=== PATIENT | female | born 1940 | race Caucasian/White ===

== ENCOUNTER 2017-06-08 22:41 | Inpatient (IN) | payer OTHER ==
[~2017-06-08] VITALS: Ht 152.4 cm; Wt 63.6 kg
--- NOTE | ~2017-06-08 | EKG ---
[address] [address] ELECTROCARDIOGRAM REPORT Name: BIPIN FRANCO Room #: 240-P ADM IN M.R.#: [id number] Admission: 06/09/17 Attend Phys: Bobby Alvarez MD Discharge: Date of : 38 Report #: [id number] THIS REPORT FOR: //name// [facility] ED Test Date: 2017-06-09 Test Time: 00:10:53 Pat Name: BIPIN FRANCO Department: Room: 240 P Gender: F Circus Laborer: EM : 1940 Requested By: Eusebio Gaming Order Number: [id number] MD: Ish Wells Measurements Intervals [place] Rate: 64 P: 64 WI: 172 QRS: 25 QRSD: 87 T: 99 QT: 468 QTc: 483 Interpretive Statements Sinus rhythm Probable left atrial enlargement LVH with secondary repolarization abnormality Compared to ECG 08/04/1997 13:16:00 Left ventricular hypertrophy now present Early repolarization now present Electronically Signed On 06-09-2017 9:57:56 BIKE DESIGNER by Ish Wells [email or web address] <ELECTRONICALLY SIGNED> By: Ish Wells MD 06/09/17 0957 0010 0010 Ish Wells MD /EPI
--- NOTE | ~2017-06-08 | HC ---
[facility] [place] [address] CONSULTATION Name: SALVADORBIPIN Quinn Room #: 240-P [facility] ..#: [id number] Admission: 06/09/17 Attend Phys: Bobby Alvarez MD Discharge: Date of : 39 Report #: [id number] THIS REPORT FOR: //name// CC: ORIANA physician/PCP ROB Alvarez REFERRAL PHYSICIAN: Bobby Alvarez MD REASON FOR REFERRAL: Acute respiratory failure. HISTORY OF PRESENT ILLNESS: The patient is a 77-year-old white female who was brought to the Emergency Room with acute mental status change. She has subsequently had a seizure following admission. The patient required intubation. A pulmonary consultation was requested. According to records, the patient was recently diagnosed with bladder cancer. She had a Port-A-Cath placed. She is to undergo chemotherapy. According to the family, the patient does have a history of seizure disorder. She was in her usual state of health until yesterday evening when she was feeling somewhat weak. She complained of dyspnea. Family noted abnormal generalized body movements. For that reason, she was brought to the Emergency Room. The patient was admitted for altered mental status. When she was hospitalized at the telemetry unit, she had seizure disorder. She was then transferred to the ICU. She again had another seizure disorder where she was found to be cyanotic and apneic. She was intubated. Currently, she is sedated. She is tolerating mechanical ventilation. PAST MEDICAL HISTORY: Notable for recent diagnosis of uterine cancer in 03/2017, status post chemotherapy, the patient was to receive chemotherapy; history of hypothyroidism; hypertension, history of depression and history of "blood clots" and is on Eliquis. PAST SURGICAL HISTORY: As mentioned above including a Port-A-Cath placement in the right subclavian vein. HOME MEDICATIONS: Bisoprolol, Synthroid, Eliquis, Zoloft, K-Dur and folic acid. FAMILY HISTORY: Unknown. SOCIAL HISTORY: She is a lifetime nonsmoker and does not drink alcohol. Records are incomplete. We are awaiting records from [facility]. REVIEW OF SYSTEMS: Deferred as the patient is intubated. [facility] [address] [place] [address] CONSULTATION Name: BIPIN FRANCO Room #: 240-P [facility]#: [id number] Admission: 06/09/17 Attend Phys: Bobby Alvarez MD Discharge: Date of : 39 Report #: [id number] PHYSICAL EXAMINATION: GENERAL: She is sedated, but arousable. VITAL SIGNS: Temperature is 97 degrees Fahrenheit, pulse is 66, respiratory rate is 17, blood pressure is 150/66 mmHg and saturation 100%. HEENT: Normocephalic and atraumatic. NECK: Supple without any lymphadenopathy or thyromegaly. CHEST: Breath sounds are clear without rales or wheezes. CARDIOVASCULAR: Normal S1 and S2. No murmurs or gallop. There is no JVD. There is no carotid bruit. Pulses are 2+/4+ bilaterally. ABDOMEN: Soft and nontender. No organomegaly or masses felt. GENITOURINARY: Deferred. RECTAL: Deferred. EXTREMITIES: There is no edema, cyanosis or clubbing. NEUROLOGIC: Deferred as the patient is sedated. LABORATORY DATA: CT of head was unremarkable. Atrophic and chronic small vessel ischemic changes are noted. EKG shows left ventricular hypertrophy, left atrial enlargement, otherwise no acute ischemic changes. Chest x-ray shows clear lung field, ET tube approximately 3 cm above the michelle. There is a Port-A-Cath placement along the right chest area. NG tube is in place. Sodium 140, potassium 3.0, chloride 103, CO2 25, BUN is 18 and creatinine is 1.2. Liver enzymes are grossly unremarkable. WBC 29,700, hemoglobin 9.6, platelets are normal, no evidence of bandemia. Albumin 2.6. Arterial blood gas revealed pH 7.26, pCO2 of 37, pO2 78 on room air. IMPRESSION: 1. Acute hypoxic respiratory failure in a 77-year-old white female due to apparent seizure disorder. 2. Seizure disorder. It is unclear if this is ____ patient. Neurology has been consulted. Initial CT head was grossly unremarkable. 3. Leukocytosis. No obvious evidence of infectious processes. Chest x-ray is clear. Blood culture has been obtained along with urine cultures. I do not suspect infectious source at this time. 4. Renal injury, presumed acute with a creatinine of 1.5. Again, we will need to review old records for confirmation. 5. Metabolic acidosis due to seizure disorder. There is partial respiratory compensation. 6. Recent uterine cancer, status post Port-A-Cath past placement to undergo chemotherapy soon. 7. Hypothyroidism. 8. Hypertension. 9. On anticoagulation. It is unclear whether she had veno thromboembolic disease. We will review medical records when available. RECOMMENDATION: We will continue mechanical ventilation for now. We will await [facility] [address] [facility] [place] [address] CONSULTATION Name: BIPIN FRANCO Room #: 240-P ADM IN Vivek.#: [id number] Admission: 06/09/17 Attend Phys: Bobby Alvarez MD Discharge: Date of : 39 Report #: [id number] neurologic evaluation. EEG is currently being performed. For now, I will recommend p.r.n. benzodiazepine along with anti-seizure medications per Neurology. Follow up cultures to rule out occult infectious processes. Follow electrolytes and acid base disorder closely. This should resolve with IV fluids. The patient was also recently given diuretics. Fluid status should also be followed closely along with electrolytes. DVT and GI prophylaxis will be addressed. As mentioned above, the patient is already on Eliquis. Thank you for this consultation. <ELECTRONICALLY SIGNED> By: Eusebio Gaming MD 06/10/17 1231 1034 0136 Eusebio Gaming MD /nt
--- NOTE | ~2017-06-08 | EKG ---
[address] [address] ELECTROCARDIOGRAM REPORT Name: SALVADORBIPIN H Room #: 240-P ADM IN M.R.#: [id number] Admission: 06/09/17 Attend Phys: Bobby Alvarez MD Discharge: Date of : 39 Report #: [id number] THIS REPORT FOR: //name// [facility] Test Date: 2017-06-09 Test Time: 07:40:22 Pat Name: BIPIN FRANCO Department: Room: 240 P Gender: F Medical Collector: MARLI : 1940 Requested By: Bobby Alvarez Order Number: [id number] MD: Ish Wells Measurements Intervals [place] Rate: 56 P: 65 IA: 159 QRS: 39 QRSD: 86 T: 78 QT: 561 QTc: 542 Interpretive Statements Sinus rhythm LVH with secondary repolarization abnormality Anterior infarct, old Electronically Signed On 06-09-2017 15:47:12 HOT BOX CHECKER by Ish Wells [email or web address] <ELECTRONICALLY SIGNED> By: Ish Wells MD 06/09/17 1547 0740 0740 MD YORDAN Calzada
--- NOTE | ~2017-06-08 | HC ---
[facility] [place] [address] CONSULTATION Name: SALVADORBIPIN H Room #: 444-P ADM IN M.R.#: [id number] Admission: 06/09/17 Attend Phys: Buck Mayer MD Discharge: Date of : 39 Report #: [id number] THIS REPORT FOR: //name// CC: Buck Mayer [facility] physician/PCP ROB ALVAREZ REASON FOR CONSULTATION: I was asked to evaluate concerning new onset of seizures in the setting of uterine cancer. HISTORY OF PRESENT ILLNESS: The patient is a 77-year-old diagnosed with uterine cancer status post hysterectomy in 03/2017. She is scheduled to start chemotherapy next week. She had a Port-A-Cath placed without complication. She had an incisional wound that has been slow to heal. Otherwise, has been doing reasonably well. On the date of admission, she was found by her having a seizure. Called 911 and she presented to the Emergency Room. She subsequently had another witnessed seizure and she was intubated, placed on mechanical ventilation. This was on 06/09/2017. She has subsequently been extubated. She has been alert and cooperative. During her evaluation, she was noted to have a white count of 20,000 and increased to 29,000. Her urinalysis was positive for wbc's and bacteria with Gram-negatives growing from the urine and negative blood cultures. 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 She has had a chest x-ray with basilar atelectasis post-extubation. She has had no cough or sputum production. No nausea, vomiting or diarrhea. Indwelling Gr catheter. IV was in place. The patient was amnestic to the events of her admission. ALLERGIES: ATORVASTATIN. MEDICATIONS: Prior to her admission, she was on Synthroid, Eliquis, bisoprolol, Zoloft, K-Dur and folic acid. PAST MEDICAL HISTORY: Hypertension, hypothyroidism, depression. Previously had renal stent, which has subsequently been removed. She had a hysterectomy. There is suggestion of a mural thrombus, but I have not seen the records from [facility]. FAMILY HISTORY: Noncontributory. SOCIAL HISTORY: Nonsmoker. No significant alcohol intake. Lives with her . REVIEW OF SYSTEMS: Noted above. PHYSICAL EXAMINATION: [facility] [address] [place] [address] CONSULTATION Name: BIPIN FRANCO Room #: [address] [place] [address] [place] .R.#: [id number] Admission: 06/09/17 Attend Phys: Buck Mayer MD Discharge: Date of : 39 Report #: [id number] VITAL SIGNS: Afebrile and hemodynamically stable. GENERAL: Alert and cooperative and pleasant, no acute distress. She was oriented. Had good recall of recent events. Speech was dysarthric, had difficulty pronouncing [place]. CRANIAL NERVES: Otherwise, intact. NECK: Supple. LUNGS: Few crackles in the bases bilaterally. HEART: Regular, without appreciable murmur, gallop or rub. ABDOMEN: Soft, nontender, no hepatosplenomegaly or mass. Midline abdominal incision had clean granulation tissue at the base. EXTREMITIES: Unremarkable. NEUROLOGIC: Nonfocal. 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 No evidence of hemorrhage or mass effect. There was some suggestion that there could be cerebral edema secondary to encephalitis cerebritis, but was difficult to exclude. Chest x-ray, basilar atelectasis. Sodium 133, potassium 3, bicarbonate 21, creatinine 1.1, AST 29, ALT 19, alkaline phosphatase 110. BNP initially was 23,000. Hemoglobin 8.2. Platelet count 372,000. White count initially 20,000, 29,000, now 16,000. Unremarkable differential. TSH 4.7. Urinalysis positive for wbc's, bacteria and urine culture showing gram-negative bacilli. Sputum has no growth. Blood cultures negative. IMPRESSION: A 77-year-old with uterine cancer, planning for chemotherapy in the near future. She has a new onset of seizures. She has history of possible mural thrombus, but this is yet to be further delineated. Now with leukocytosis. The cause of her leukocytosis could still be related to her seizures, although that is usually a transient event and she continues to have high white count. Urinary tract infection also considered. Complication from her uterine surgery also may be an issue. The MRI scan shows suspected past ischemic events. Would also consider an of cerebritis. PLAN: We will plan to continue Gram-negative coverage for her urinary tract infection. Would image her pelvis to ensure no evidence of residual fluid collection that may be driving the white count. Given the fact that she is scheduled to have chemotherapy, I would recommend LP to rule out any inflammatory condition. I doubt we are dealing with herpes encephalitis considering the patient's mental status is back to normal. There is concern from family not to pursue invasive procedures. However, given the fact that she is to undergo chemotherapy, I would evaluate this event further prior to initiating this treatment course. <ELECTRONICALLY SIGNED> By: Feroz Theodore MD 06/11/17 1707 0816 1248 Feroz Theodore MD /nt
--- NOTE | ~2017-06-08 | EKG ---
[address] [place] [address] ELECTROCARDIOGRAM REPORT Name: BIPIN FRANCO Room #: 240-P ADM IN M.R.#: [id number] Admission: 06/09/17 Attend Phys: Bobby Alvarez MD Discharge: Date of : 39 Report #: [id number] THIS REPORT FOR: //name// [facility] ED Test Date: 2017-06-09 Test Time: 00:32:02 Pat Name: BIPIN FRANCO Department: Room: 240 Gender: F Information Assistant: EM : 1940 Requested By: Jad Limon Order Number: [id number] MD: Ish Wells Measurements Intervals [place] Rate: 96 P: RI: QRS: -52 QRSD: 119 T: 100 QT: 386 QTc: 488 Interpretive Statements Sinus rhythm LVH with IVCD, LAD and secondary repol abnrm Compared to ECG 08/04/1997 13:16:00 Intraventricular conduction delay now present Left ventricular hypertrophy now present Early repolarization now present Sinus rhythm no longer present Electronically Signed On 06-09-2017 9:58:42 ENGINEERING GROUP MANAGER by Ish Wells [email or web address] <ELECTRONICALLY SIGNED> By: Ish Wells MD 06/09/17 0958 Ish Wells MD /EPI
[2017-06-08 22:42] VITALS: BP 184/72
[2017-06-08 23:06] LABS: HEMATOCRIT 28.5 % (37.0-47.0); HEMOGLOBIN 8.9 gm/dL (12.0-15.0); MCH 26.8 pg (26.0-34.0); MCHC 31.3 g/dL (28.0-37.0); MCV 85.6 fL (80.0-100.0); RBC 3.33 mil/uL (4.20-5.00); RDW 18.8 % (10.5-14.5); WBC 20.2 thou/uL (4.0-11.0)
[2017-06-08 23:19] LABS: ANION GAP 15 mmol/L (7-16); BUN 19 mg/dL (7-18); CALCIUM 9.1 mg/dL (8.5-10.1); CHLORIDE 103 mmol/L (98-107); CO2 21 mmol/L (21-32); CREATININE 1.4 mg/dL (0.6-1.0); GLUCOSE 161 mg/dL (74-106); POTASSIUM 3.5 mmol/L (3.5-5.1); SODIUM 139 mmol/L (136-145)
[2017-06-08 23:28] LABS: ALBUMIN 2.6 g/dL (3.4-5.0); ALKALINE PHOSPHATASE 127 U/L (46-116); SGOT 24 U/L (15-37); SGPT 22 U/L (30-65); TOTAL BILIRUBIN 0.6 mg/dL (<0.1-1.0); TOTAL PROTEIN 7.1 g/dL (6.4-8.2); TROPONIN-I < 0.04 ng/mL (<0.06)
[2017-06-08] MEDS ORDERED: BISOPROLOL FUMA10 MG PO (23:37)
[2017-06-08] MEDS ORDERED: SYNTHROID25 MCG PO (23:38)
[2017-06-08] MEDS ORDERED: ELIQUIS2.5 MG PO (23:38)
[2017-06-08] MEDS ORDERED: POTASSIUM20 PO (23:39)
[2017-06-08] MEDS ORDERED: ZOLOFT 50 MG TA50 M1 PO (23:39)
[2017-06-08] MEDS ORDERED: FOLIC ACID1 MG PO (23:39)
[2017-06-09] VITALS (30 sets, daily range): BP systolic 106–250; BP diastolic 44–115
[2017-06-09 00:20] LABS: URINE BILIRUBIN NEGATIVE (Negative); URINE BLOOD 3+ (Negative); URINE COLOR YELLOW; URINE GLUCOSE-RANDOM* NEGATIVE (Negative); URINE KETONES NEGATIVE (Negative); URINE PROTEIN (DIPSTICK) 1+ (Negative); URINE SPECIFIC GRAVITY 1.015 (1.005-1.035); URINE UROBILINOGEN 0.2 E.U./dl (0.2-1.0)
[2017-06-09 00:27] LABS: URINE LEUKOCYTES-REFLEX 2+ (Negative)
[2017-06-09 00:29] LABS: CASTS None Seen /LPF (None Seen); CRYSTALS None Seen /LPF (None Seen); SQUAMOUS None Seen /LPF (0-3); TRANSITIONAL EPITHEL CELL 0-3 Few /LPF (None Seen); URINE WBC-REFLEX >25 Many /HPF (0-5); WBC CLUMPS Few (None Seen)
[2017-06-09 03:04] LABS: HEMOGLOBIN 9.6 gm/dL (12.0-15.0); MCH 26.5 pg (26.0-34.0); MCV 88.3 fL (80.0-100.0); PLATELET COUNT 523 thou/uL (150-400); RBC 3.63 mil/uL (4.20-5.00); RDW 18.6 % (10.5-14.5); WBC 29.7 thou/uL (4.0-11.0)
[2017-06-09 03:05] LABS: MANUAL DIFF YES
[2017-06-09 03:12] LABS: ABG SAMPLE TYPE ARTERIAL; BE(vivo) -9.7 mmol/L (-2 to +3); HCO3 16.5 mmol/L (22.0-26.0); O2Hb 92.1 % (92.0-98.0); PCO2 37.6 mmHg (35.0-45.0); PO2 78.9 mmHg (80.0-100.0); tCO2 17.7 mmol/L (24.0-30.0)
[2017-06-09 03:13] LABS: LACTATE 9.17 mmol/L (0.5-2.0); STICK SITE L.RADIAL; pH 7.261 (7.360-7.450)
[2017-06-09 03:21] LABS: ALBUMIN 2.7 g/dL (3.4-5.0); CALCIUM 9.6 mg/dL (8.5-10.1); CREATININE 1.5 mg/dL (0.6-1.0); PHOSPHORUS 4.2 mg/dL (2.5-4.9); POTASSIUM 4.4 mmol/L (3.5-5.1); TOTAL BILIRUBIN 0.7 mg/dL (<0.1-1.0); TOTAL PROTEIN 7.4 g/dL (6.4-8.2)
[2017-06-09 03:27] LABS: ABSOLUTE NEUTROPHILS 20.5 thou/uL (1.4-8.2); ANISOCYTOSIS 2+; POLYCHROMASIA OCCASIONAL; TOTAL CELL COUNT 100
[2017-06-09 04:23] LABS: ABG SAMPLE TYPE ARTERIAL; BE(vivo) -8.8 mmol/L (-2 to +3); HCO3 17.4 mmol/L (22.0-26.0); LACTATE 8.76 mmol/L (0.5-2.0); O2Hb 98.3 % (92.0-98.0); PCO2 38.7 mmHg (35.0-45.0); PO2 222.3 mmHg (80.0-100.0); STICK SITE L.RADIAL; sO2 99.4 % (92.0-98.0); tCO2 18.6 mmol/L (24.0-30.0)
[2017-06-09 04:24] LABS: TIDAL VOLUME 450 ml; VDS A/C16 cc
[2017-06-09 07:47] LABS: HEMATOCRIT 25.2 % (37.0-47.0); HEMOGLOBIN 8.2 gm/dL (12.0-15.0); MCH 27.5 pg (26.0-34.0); MCHC 32.6 g/dL (28.0-37.0); MCV 84.5 fL (80.0-100.0); RBC 2.99 mil/uL (4.20-5.00); RDW 18.7 % (10.5-14.5); WBC 19.5 thou/uL (4.0-11.0)
[2017-06-09 07:53] LABS: CREATININE 1.2 mg/dL (0.6-1.0)
[2017-06-09 07:54] LABS: MAGNESIUM 1.9 mg/dL (1.8-2.4)
[2017-06-09 08:01] LABS: MANUAL DIFF YES; PLATELET COUNT 387 thou/uL (150-400)
[2017-06-09 08:08] LABS: AMP/METHAMP Negative (Negative); BARBITURATES Negative (Negative); BENZODIAZEPINES Negative (Negative); COCAINE Negative (Negative); METHADONE Negative (Negative); OPIATES Negative (Negative); PCP Negative (Negative)
[2017-06-09 10:04] LABS: TOTAL CELL COUNT 100
[2017-06-09 10:05] LABS: ABSOLUTE NEUTROPHILS 16.4 thou/uL (1.4-8.2); ANISOCYTOSIS 2+; METAMYELOCYTES 1 %
[2017-06-09 14:59] LABS: ALBUMIN 2.3 g/dL (3.4-5.0); CALCIUM 8.7 mg/dL (8.5-10.1); CREATININE 1.2 mg/dL (0.6-1.0); POTASSIUM 3.4 mmol/L (3.5-5.1); TOTAL BILIRUBIN 0.8 mg/dL (<0.1-1.0); TOTAL PROTEIN 6.6 g/dL (6.4-8.2)
[2017-06-09 20:30] LABS: MAGNESIUM 1.6 mg/dL (1.8-2.4); POTASSIUM 3.3 mmol/L (3.5-5.1)
[2017-06-10] VITALS (18 sets, daily range): BP systolic 106–179; BP diastolic 47–102
[2017-06-10 02:13] LABS: ABSOLUTE NEUTROPHILS 13.7 thou/uL (1.4-8.2); BASOPHILS 0.7 % (0.0-2.0); EOSINOPHILS 0.5 % (0.0-3.0); HEMATOCRIT 26.5 % (37.0-47.0); HEMOGLOBIN 8.6 gm/dL (12.0-15.0); LYMPHOCYTES 11.2 % (24.0-44.0); MCH 27.2 pg (26.0-34.0); MCHC 32.4 g/dL (28.0-37.0); MONOCYTES 6.4 % (1.0-8.0); PLATELET COUNT 377 thou/uL (150-400); POLYS 81.2 % (36.0-66.0); RBC 3.15 mil/uL (4.20-5.00); RDW 18.9 % (10.5-14.5); WBC 16.8 thou/uL (4.0-11.0)
[2017-06-10 02:18] LABS: MANUAL DIFF NO
[2017-06-10 02:26] LABS: ALBUMIN 2.1 g/dL (3.4-5.0); CALCIUM 8.4 mg/dL (8.5-10.1); CREATININE 1.4 mg/dL (0.6-1.0); POTASSIUM 4.2 mmol/L (3.5-5.1); TOTAL BILIRUBIN 0.7 mg/dL (<0.1-1.0); TOTAL PROTEIN 6.1 g/dL (6.4-8.2)
[2017-06-10 05:42] LABS: ABG SAMPLE TYPE ARTERIAL; BE(vivo) -1.5 mmol/L (-2 to +3); HCO3 21.9 mmol/L (22.0-26.0); LACTATE 1.39 mmol/L (0.5-2.0); O2(CT) 12.4 mL/dL (15.0-23.0); O2Hb 94.3 % (92.0-98.0); PO2 79.8 mmHg (80.0-100.0); pH 7.454 (7.360-7.450); sO2 96.4 % (92.0-98.0); tCO2 22.9 mmol/L (24.0-30.0)
[2017-06-10 05:43] LABS: FIO2 30 %; STICK SITE R.BRACHIAL; TIDAL VOLUME 450 ml
[2017-06-11] VITALS (8 sets, daily range): BP systolic 107–171; BP diastolic 49–107
[2017-06-11 04:44] LABS: BASOPHILS 0.7 % (0.0-2.0); EOSINOPHILS 0.4 % (0.0-3.0); HEMATOCRIT 24.5 % (37.0-47.0); HEMOGLOBIN 8.2 gm/dL (12.0-15.0); LYMPHOCYTES 9.9 % (24.0-44.0); MCH 28.3 pg (26.0-34.0); MCHC 33.4 g/dL (28.0-37.0); MCV 84.8 fL (80.0-100.0); MONOCYTES 5.8 % (1.0-8.0); PLATELET COUNT 372 thou/uL (150-400); POLYS 83.2 % (36.0-66.0); RBC 2.89 mil/uL (4.20-5.00); RDW 19.5 % (10.5-14.5); WBC 16.8 thou/uL (4.0-11.0)
[2017-06-11 04:46] LABS: MANUAL DIFF NO
[2017-06-11 05:00] LABS: CALCIUM 8.1 mg/dL (8.5-10.1); CREATININE 1.1 mg/dL (0.6-1.0)
[2017-06-12 03:30] VITALS: BP 173/71
[2017-06-12 08:27] VITALS: BP 174/63
[2017-06-12 16:33] VITALS: BP 175/64
[2017-06-12 20:12] VITALS: BP 197/68
[2017-06-13 04:06] VITALS: BP 163/57
[2017-06-13 06:15] LABS: ABSOLUTE NEUTROPHILS 15.8 thou/uL (1.4-8.2); BASOPHILS 0.3 % (0.0-2.0); EOSINOPHILS 0.5 % (0.0-3.0); HEMATOCRIT 24.5 % (37.0-47.0); HEMOGLOBIN 7.8 gm/dL (12.0-15.0); LYMPHOCYTES 12.2 % (24.0-44.0); MANUAL DIFF NO; MCH 27.4 pg (26.0-34.0); MCV 85.6 fL (80.0-100.0); MONOCYTES 6.6 % (1.0-8.0); PLATELET COUNT 356 thou/uL (150-400); POLYS 80.4 % (36.0-66.0); RBC 2.86 mil/uL (4.20-5.00); RDW 19.2 % (10.5-14.5); WBC 19.6 thou/uL (4.0-11.0)
[2017-06-13 06:32] LABS: CALCIUM 8.4 mg/dL (8.5-10.1); CREATININE 1.2 mg/dL (0.6-1.0)
[2017-06-13 08:27] VITALS: BP 167/63
[2017-06-13 16:13] VITALS: BP 175/59
[2017-06-13 20:50] VITALS: BP 161/59
[2017-06-14 04:29] VITALS: BP 202/74
[2017-06-14 05:52] LABS: ABSOLUTE NEUTROPHILS 13.3 thou/uL (1.4-8.2); BASOPHILS 0.5 % (0.0-2.0); EOSINOPHILS 1.4 % (0.0-3.0); HEMOGLOBIN 7.6 gm/dL (12.0-15.0); LYMPHOCYTES 10.7 % (24.0-44.0); MCH 27.8 pg (26.0-34.0); MCHC 32.9 g/dL (28.0-37.0); MCV 84.6 fL (80.0-100.0); PLATELET COUNT 365 thou/uL (150-400); POLYS 80.4 % (36.0-66.0); RBC 2.72 mil/uL (4.20-5.00); RDW 19.2 % (10.5-14.5); WBC 16.6 thou/uL (4.0-11.0)
[2017-06-14 06:01] LABS: MANUAL DIFF NO
[2017-06-14 06:13] LABS: CALCIUM 8.2 mg/dL (8.5-10.1); POTASSIUM 3.8 mmol/L (3.5-5.1)
[2017-06-14 07:20] VITALS: BP 166/60
[2017-06-14] MEDS ORDERED: BACTRIM DS TAB1 EACH PO (12:29)
[2017-06-14] MEDS ORDERED: KEPPRA 500 MG500 M1 PO (12:39)
== END 2017-06-14 15:30 | DRG 208 ==
LOC: ER 22:41 → ICU 06-09 00:01 → EROBS 06-09 00:01 → 2N 06-09 01:57 → ICU 06-09 02:05 → 4S 06-11 09:45
PROVIDERS: Emergency Medicine; Hospitalist; Internal Medicine Pulmonary Disease; Nurse Practitioner Family
PROC: 5A1945Z Respiratory Ventilation, 24-96 Consecutive Hours (ICD-10-PCS; principal; 2017-06-09)
PROC: 4A10X4Z Monitoring of Central Nervous Electrical Activity, External Approach (ICD-10-PCS; 2017-06-09)
PROC: 0BH17EZ Insertion of Endotracheal Airway into Trachea, Via Natural or Artificial Opening (ICD-10-PCS; 2017-06-09)
DX: J96.01 Acute respiratory failure with hypoxia (principal); G04.90 Encephalitis and encephalomyelitis, unspecified; N17.9 Acute kidney failure, unspecified; N39.0 Urinary tract infection, site not specified; E87.2 Acidosis; T81.30XA Disruption of wound, unspecified, initial encounter; I50.20 Unspecified systolic (congestive) heart failure; E46 Unspecified protein-calorie malnutrition; Z66 Do not resuscitate; D64.9 Anemia, unspecified; G40.909 Epilepsy, unspecified, not intractable, without status epilepticus; B96.20 Unspecified Escherichia coli [E. coli] as the cause of diseases classified elsewhere; R47.81 Slurred speech; I51.3 Intracardiac thrombosis, not elsewhere classified; E03.9 Hypothyroidism, unspecified; I11.0 Hypertensive heart disease with heart failure; F32.9 Major depressive disorder, single episode, unspecified; Z85.51 Personal history of malignant neoplasm of bladder; Z79.899 Other long term (current) drug therapy; Z88.8 Allergy status to other drugs, medicaments and biological substances; Z85.42 Personal history of malignant neoplasm of other parts of uterus; Z90.710 Acquired absence of both cervix and uterus; Z28.21 Immunization not carried out because of patient refusal; Z68.27 Body mass index [BMI] 27.0-27.9, adult; Z79.01 Long term (current) use of anticoagulants
CPT/HCPCS: 10078; 10100

== ENCOUNTER 2017-07-03 04:13 | Inpatient (IN) | payer OTHER ==
[~2017-07-03] VITALS: Ht 152.4 cm; Wt 61.1 kg
--- NOTE | ~2017-07-03 | HC ---
[facility] [place] [address] CONSULTATION Name: BIPIN FRANCO Room #: 429-P [facility] IN .R.#: [id number] Admission: 07/03/17 Attend Phys: Bobby Alvarez MD Discharge: 07/05/17 Date of : 39 Report #: [id number] THIS REPORT FOR: //name// CC: Bobby Alvarez MD Campbell Obrieneduardo This is a palliative care consultation. REQUESTING PHYSICIAN: Bobby Alvarez MD HISTORY OF PRESENT ILLNESS: The patient is a 77-year-old female who presented to [facility] yesterday morning. This patient had presented with a seizure activity, had been recently admitted from June 09 to the and had altered mental status, leukocytosis, anemia, and lactic acidosis as well as was discovered to have new onset of seizures at that time. The patient had been discharged to the [facility] with hospice care. She had that for approximately 2 weeks, but had another an episode prompting her admission, received Versed prior to arrival. She did receive Keppra dose on admission. Subsequently, Dr. Solis has seen the patient. EEG performed this morning and results are pending. He was considering switch to Vimpat to better manage her symptoms. The patient has had considerable failure to thrive per family, the patient is currently not communicating extensively, although appears to maintain attention level at this time. Of note, during her last admission, she did have 2 code episodes, I do not know the exact details with regard to this; however, again the patient had also required ventilator due to hypoxic respiratory failure. She is currently unable to tell me of any discomfort at this time extensively, but she is able to answer an affirmative of negative. She does not appear to be in great discomfort per her report and per vitals and assessment today. PAST MEDICAL HISTORY: Significant for history of mural thrombus, history of cardiac arrest, hypertension, history of uterine cancer in March 2017, hypothyroidism, and CHF, unknown type. PAST SURGICAL HISTORY: Total abdominal hysterectomy in March 2017 and Port-A-Cath placement. ALLERGIES: LIPITOR. SOCIAL HISTORY: Currently DNR. This was changed as of her last admission. She has a spouse who was present for my interview and the daughter present for my interview as well as a son who is a physician surgeon locally. MEDICATIONS PRIOR TO ARRIVAL: Keppra, levothyroxine, Eliquis, Zoloft, potassium chloride, folic acid, and bisoprolol. FAMILY HISTORY: Noncontributory. [facility] [address] [place] [address] CONSULTATION Name: BIPIN FRANCO Room #: 429-P [facility]#: [id number] Admission: 07/03/17 Attend Phys: Bobby Alvarez MD Discharge: 07/05/17 Date of : 39 Report #: [id number] REVIEW OF SYSTEMS: Unable to obtain a majority except the patient denies pain. Denies constipation. Denies shortness of breath currently. PHYSICAL EXAMINATION: VITAL SIGNS: Temperature 36.7, pulse 71, respirations 20, blood pressure 170/69, and 94% on room air. GENERAL: The patient appears to have relatively good attention level, but difficult to assess. She is able to maintain eye gaze at this time and able to answer some questions with affirmatives of negative. CARDIOVASCULAR: Regular rate and rhythm without murmur. LUNGS: These appear to be clear to auscultation bilaterally. No wheezes, rales, or rhonchi. ABDOMEN: Soft, nontender to palpation. She does have generalized cachexia. EXTREMITIES: Appears to have overall weakness. LABS: Currently, white blood cell count 11.2, hemoglobin 7.5, and platelets 374. Creatinine 2.2 and magnesium 1.5. ASSESSMENT AND PLAN: 1. Adult failure to thrive. At this time, the patient has had significant decline in overall functional condition. She has had weight loss. She has acute kidney injury. She has in addition multiple seizures recently as well as a previous cardiac arrest. She has had overall poor condition and continues to deteriorate. I do believe the patient continues to qualify for hospice. I did discuss extensively with family today. I spent approximately 35 minutes in advance care planning, discussing, and restarting of hospice likely that she will qualify to be back at the [facility] with their additional benefits. The family did appear to be amenable to this at this time. We are currently awaiting the results from her EEG and further management of that prior to discharge. I did discuss this with family. They appear to be amenable with all these recommendations and/or considerations. I did give cards in case they need to contact me in the future. 2. Seizure disorder with recurrent recent seizures. Again, management per neurology team, I appreciate their consultation. 3. History of cardiac arrest. Again, the patient at this time has an overall poor prognosis based on her current condition and based on recent decrease in functional capacity discussed as above today. 4. Acute kidney injury. This appears to be recurrent. Unfortunately, effects her overall prognosis. 5. Anemia, unknown potential origin at this time, although this is a potentially contributing factor to her overall prognosis. 6. I will continue to follow, did discuss that the patient could likely be discharged from our standpoint when medically stable for discharge. [facility] [address] [place] [address] CONSULTATION Name: BIPIN FRANCO Room #: 429-P [facility] IN M.R.#: [id number] Admission: 07/03/17 Attend Phys: Bobby Alvarez MD Discharge: 07/05/17 Date of : 39 Report #: [id number] Thank you very much for the consultation. <ELECTRONICALLY SIGNED> By: Janusz Irvin DO 07/24/17 1224 1223 1508 Janusz Irvin DO /nt
--- NOTE | ~2017-07-03 | HC ---
[facility] [place] [address] CONSULTATION Name: BIPIN FRANCO Room #: 429-P [facility] IN ..#: [id number] Admission: 07/03/17 Attend Phys: Bobby Alvarez MD Discharge: 07/05/17 Date of : 39 Report #: [id number] THIS REPORT FOR: //name// CC: Bobby Shipman DATE OF SERVICE: 07/03/2017 HISTORY OF PRESENT ILLNESS: This is a 77-year-old female patient who was seen by me because she had reoccurrence of seizure. I have known this patient from her previous admission and the family has decided comfort care only. The patient herself has expressed that desire. We did not do the workup the last time as they did not want to proceed with further workup and they still want to do the same thing and they want us to basically control her seizure. She has not been very responsive after the seizure. It was apparently grand mal seizure. This happened in spite of being on Keppra. There is some relationship to morphine, but I am not sure whether that caused the seizure. REVIEW OF SYSTEMS: Indicate that this patient was admitted with a severe encephalopathy. She had a UTI at that time. She was also going to start chemotherapy. She apparently has a history of congestive heart failure. I carried out 14-point review of system some from the family and some from the record and this was her relevant 14-point review of system. This patient apparently has been a hospice patient. She also has a prior history of depression. PAST MEDICAL HISTORY: Positive for seizure. FAMILY HISTORY: Negative for any seizures. SOCIAL HISTORY: She has a supporting family, but they have decided that they want very conservative comfort care only. PHYSICAL EXAMINATION: NEUROLOGICAL: The patient's examination is pretty limited. She does not say anything. She does not follow commands. Her speech looks slurred and I tried to do cranial nerve examination 2-12, we were unable to do it because she did not cooperate. I cannot tell even neuromuscular examination because of poor cooperation. I do not see any meningeal sign. RESPIRATORY: There does not appear to be respiratory difficulty. GENERAL: She is reasonably well-developed individual who does not have any dysmorphic features of eyes, ears and face. NECK: She has no thyroid mass or carotid bruit. HEENT: I believe she can hear and see things reasonably well. VITAL SIGNS: Her blood pressure is 121/64, respiration is 16, pulse is 61 and temperature is 97.5. [facility] [address] [place] [address] CONSULTATION Name: BIPIN FRANCO Room #: 429-P [facility] IN [facility]#: [id number] Admission: 07/03/17 Attend Phys: Bobby Alvarez MD Discharge: 07/05/17 Date of : 39 Report #: [id number] LABORATORY DATA: White count is 12.1. RADIOLOGICAL DATA: She did have a CT scan of the head done, which does not appear to be showing any acute abnormality. Cardiac examination does indicate she had a mural thrombus. To me, it does not look like she has any change. She does not have any edema, cyanosis or jaundice. IMPRESSION AND PLAN: Recurrent seizure in a patient who had encephalopathy. Family has decided comfort care only. Comfort care will be done with control of her seizure. I think she needs some stronger anticonvulsant than Keppra. We will try Vimpat in this patient. I will try to get an electroencephalogram done. If electroencephalogram is showing active seizure activity, I will rapidly buildup Vimpat and if not, then I will go by scheduled and build it up. I discussed all of it with the family in great detail and I discussed with them their options and they understand these options and want to follow the above plan. Thank you very much for this referral and if you have any questions, please feel free to contact me. <ELECTRONICALLY SIGNED> By: Hardy Solis MD 07/08/17 1815 1643 37 Hardy Solis MD /nt
--- NOTE | ~2017-07-03 | EKG ---
[place] [address] [facility] [place] [address] ELECTROCARDIOGRAM REPORT Name: BIPIN FRANCO Room #: 170-2 ADM IN M.R.#: [id number] Admission: 07/03/17 Attend Phys: Bobby Alvarez MD Discharge: Date of : 38 Report #: [id number] THIS REPORT FOR: //name// [facility] ED Test Date: 2017-07-03 Test Time: 04:20:35 Pat Name: BIPIN FRANCO Department: Room: 170 Gender: F Application Assistant: 89 : 1940 Requested By: Kimber Stanford Order Number: [id number] MD: Jimmy Muñoz Measurements Intervals [place] Rate: 62 P: 40 OK: 146 QRS: 2 QRSD: 87 T: 71 QT: 457 QTc: 464 Interpretive Statements Sinus rhythm Left ventricular hypertrophy ST depression, consider ischemia, lateral lds Compared to ECG 06/09/2017 07:40:22 QT interval has shortened Electronically Signed On 07-03-2017 8:34:38 [employer] by Jimmy Muñoz [email or web address] <ELECTRONICALLY SIGNED> By: Jimmy Muñoz MD, [facility] 07/03/17 0834 0420 0420 Jimmy Muñoz MD, [facility] /EPI
[~2017-07-03 04:13] MED LIST: BACTRIM DS TAB1 EACH PO; BISOPROLOL FUMA10 MG PO; ELIQUIS2.5 MG PO; FOLIC ACID1 MG PO; KEPPRA 500 MG500 M1 PO; POTASSIUM20 PO; SYNTHROID25 MCG PO; ZOLOFT 50 MG TA50 M1 PO
[2017-07-03 04:17] VITALS: BP 105/53
[2017-07-03 04:37] LABS: ABSOLUTE NEUTROPHILS 8.5 thou/uL (1.4-8.2); BASOPHILS 0.8 % (0.0-2.0); EOSINOPHILS 1.6 % (0.0-3.0); HEMATOCRIT 26.9 % (37.0-47.0); HEMOGLOBIN 8.5 gm/dL (12.0-15.0); LYMPHOCYTES 19.7 % (24.0-44.0); MCH 26.5 pg (26.0-34.0); MCHC 31.5 g/dL (28.0-37.0); MCV 84.2 fL (80.0-100.0); MONOCYTES 7.4 % (1.0-8.0); PLATELET COUNT 412 thou/uL (150-400); POLYS 70.5 % (36.0-66.0); WBC 12.1 thou/uL (4.0-11.0)
[2017-07-03 04:48] LABS: CALCIUM 9.5 mg/dL (8.5-10.1); POTASSIUM 4.7 mmol/L (3.5-5.1)
[2017-07-03 05:23] LABS: BE(vivo) -12.9 mmol/L (-2 to +3); HCO3 13.5 mmol/L (22.0-26.0); PO2 81.9 mmHg (80.0-100.0); sO2 94.2 % (92.0-98.0)
[2017-07-03 05:24] LABS: pH 7.231 (7.360-7.450)
[2017-07-03 05:41] LABS: ALBUMIN 2.4 g/dL (3.4-5.0); DIRECT BILIRUBIN < 0.1 mg/dL (<0.1-0.3); SGOT 32 U/L (15-37); SGPT 24 U/L (30-65); TOTAL BILIRUBIN 0.3 mg/dL (<0.1-1.0); TOTAL PROTEIN 7.4 g/dL (6.4-8.2)
[2017-07-03 05:44] LABS: URINE BILIRUBIN NEGATIVE (Negative); URINE BLOOD 1+ (Negative); URINE CLARITY CLEAR; URINE COLOR YELLOW; URINE GLUCOSE-RANDOM* NEGATIVE (Negative); URINE KETONES NEGATIVE (Negative); URINE LEUKOCYTES 1+ (Negative); URINE NITRITE NEGATIVE (Negative); URINE PROTEIN (DIPSTICK) NEGATIVE (Negative); URINE UROBILINOGEN 0.2 E.U./dl (0.2-1.0)
[2017-07-03 06:12] LABS: SQUAMOUS 0-3 Few /LPF (0-3)
[2017-07-03 06:13] LABS: CASTS None Seen /LPF (None Seen); CRYSTALS None Seen /LPF (None Seen); MUCUS 0-3 Light strn/LPF (None Seen); URINE RBC 3-10 Few /HPF (0-2); URINE WBC 6-15 Few /HPF (0-5); YEAST Present (None Seen)
[2017-07-03 06:14] LABS: BACTERIA None Seen /HPF (None Seen)
[2017-07-03 15:23] VITALS: BP 121/64
[2017-07-03 17:12] VITALS: BP 151/61
[2017-07-03 20:40] VITALS: BP 171/69
[2017-07-04 04:34] VITALS: BP 201/69
[2017-07-04 06:40] LABS: ABSOLUTE NEUTROPHILS 8.2 thou/uL (1.4-8.2); BASOPHILS 1.1 % (0.0-2.0); EOSINOPHILS 2.5 % (0.0-3.0); HEMATOCRIT 23.3 % (37.0-47.0); HEMOGLOBIN 7.5 gm/dL (12.0-15.0); LYMPHOCYTES 15.8 % (24.0-44.0); MCH 26.3 pg (26.0-34.0); MCHC 32.4 g/dL (28.0-37.0); MCV 81.2 fL (80.0-100.0); MONOCYTES 7.4 % (1.0-8.0); PLATELET COUNT 374 thou/uL (150-400); POLYS 73.2 % (36.0-66.0); RBC 2.87 mil/uL (4.20-5.00); RDW 19.2 % (10.5-14.5); WBC 11.2 thou/uL (4.0-11.0)
[2017-07-04 06:58] LABS: CALCIUM 8.6 mg/dL (8.5-10.1); CREATININE 2.2 mg/dL (0.6-1.0); MAGNESIUM 1.5 mg/dL (1.8-2.4); POTASSIUM 4.8 mmol/L (3.5-5.1)
[2017-07-04 08:28] VITALS: BP 170/69
[2017-07-04 16:00] VITALS: BP 198/67; BP 202/70; BP 209/72
[2017-07-04 19:28] VITALS: BP 200/83
[2017-07-05 03:54] VITALS: BP 213/93
[2017-07-05 09:10] VITALS: BP 197/67
[2017-07-05 15:00] VITALS: BP 207/84
[2017-07-05] MEDS ORDERED: VIMPAT100 MG PO (15:34)
== END 2017-07-05 18:19 | disposition hospice, inpatient (51) | DRG 871 ==
LOC: ER 04:13 → EROBS 05:40 → 4E 05:40 → EROBS 17:33 → 4E 18:09
PROVIDERS: Emergency Medicine; Nurse Practitioner
PROC: 4A00X4Z Measurement of Central Nervous Electrical Activity, External Approach (ICD-10-PCS; principal; 2017-07-05)
DX: A41.9 Sepsis, unspecified organism (principal); R65.21 Severe sepsis with septic shock; E43 Unspecified severe protein-calorie malnutrition; N17.9 Acute kidney failure, unspecified; N39.0 Urinary tract infection, site not specified; E87.2 Acidosis; E46 Unspecified protein-calorie malnutrition; F32.9 Major depressive disorder, single episode, unspecified; I11.0 Hypertensive heart disease with heart failure; Z51.5 Encounter for palliative care; Z66 Do not resuscitate; R62.7 Adult failure to thrive; G40.909 Epilepsy, unspecified, not intractable, without status epilepticus; D64.9 Anemia, unspecified; E03.9 Hypothyroidism, unspecified; I50.9 Heart failure, unspecified; Z68.26 Body mass index [BMI] 26.0-26.9, adult; Z86.74 Personal history of sudden cardiac arrest; Z85.42 Personal history of malignant neoplasm of other parts of uterus; Z90.710 Acquired absence of both cervix and uterus; Z88.8 Allergy status to other drugs, medicaments and biological substances
CPT/HCPCS: 10183